=== PATIENT | female | born 1985 | race Caucasian/White ===

== ENCOUNTER → 2019-09-02 | Outpatient (CLI) | payer OTHER ==
[~2019-09-02] MED LIST: CRS350T PO; NAPR-243 PO; TRM50T PO
--- NOTE | 2019-09-02 11:37 | Diagnostic Imaging Report ---
PROCEDURE: US Hepatic (Liver). TECHNIQUE: Multiple real-time grayscale images were obtained over the right upper quadrant in various projections. INDICATION: Elevated liver enzymes. FINDINGS: The liver is normal in size at 17 cm. Liver demonstrates a homogeneous echotexture. No discrete mass is identified. The portal vein is patent and shows normal direction of flow. Hepatic veins show normal pulsatility. Gallbladder is without stones or sludge. No wall thickening or biliary ductal dilatation is seen. The common bile duct is 4 mm in diameter. The pancreas has a normal appearance. Right kidney is without evidence of calculi or hydronephrosis. There is no ascites. IMPRESSION: Unremarkable hepatic ultrasound. Dictated by: Dictated on workstation # [id number]
== END ==
LOC: RAD 07:34
PROVIDERS: ATTEND Family Medicine
DX: R74.8 Abnormal levels of other serum enzymes (principal)
CPT/HCPCS: 76705